=== PATIENT | male | born 1930 | race Caucasian/White ===

== ENCOUNTER 2017-10-04 15:11 | Inpatient (IN) ==
[2017-10-04] MEDS ORDERED: SODIUM CHLORIDE 0.9% 1,000 ML IV STA (17:50)
[2017-10-04 18:02] LABS: Basophils % 0.2 % (0.0-0.8); Hematocrit 34.9 VOL% (42.0-52.0); Hemoglobin 11.8 GM/DL (14.0-18.0); Immature Granulocytes % 0.4 %; Immature Granulocytes Absolute 0.04 #; Lymphocytes # 0.3 10*3/uL (1.4-4.0); Mean Corpuscular HGB Conc 33.8 GM/DL (32-36); Mean Corpuscular Hemoglobin 30 PG (27-34); Mean Corpuscular Volume 89.9 FL (87-102); Mean Platelet Volume 10.8 FL (9.6-12.0); Monocytes # 0.9 10*3/uL (0.11-0.8); Monocytes % 9.1 % (1.7-12.7); Neutrophils # 9.1 10*3/uL (1.4-7.4); Neutrophils % 87.3 % (38.7-73.9); Platelet Count 122 T/CUMM (130-400); Red Blood Count 3.88 MC/CUMM (3.8-5.5); White Blood Count 10.4 T/CUMM (4-12)
[2017-10-04 18:31] LABS: Albumin 3.1 G/DL (3.4-5.0); CKMB % 1.4 %; Calcium 8.7 MG/DL (8.5-10.1); Potassium 4.4 MMOL/L (3.5-5.1); Total Protein 7.1 G/DL (6.4-8.3); Troponin I Only 0.137 NG/ML (0.00-0.045)
[2017-10-04] MEDS ORDERED: ONDANSETRON 4 MG/2 ML VIAL IV STA (18:43)
[2017-10-04] MEDS ORDERED: MAGNESIUM SULF RIDER 2 GM in PREMIX 1 EACH IV PRN (19:29)
[2017-10-04] MEDS ORDERED: POTASSIUM CHLORIDE 20 MEQ TABLET PO PRN (19:29)
[2017-10-04] MEDS ORDERED: ONDANSETRON 4 MG/2 ML VIAL IV PRN (19:29)
[2017-10-04] MEDS ORDERED: ENOXAPARIN 100 MG/ML SYRINGE SUBCUT SCH (19:30)
[2017-10-04] MEDS ORDERED: FUROSEMIDE 40 MG TABLET PO SCH (20:00)
[2017-10-04 21:32] LABS: Band Neutrophils 2 % (0-10); Lymphocytes 3 % (20-55); Platelet Estimate Normal; Segmented Neutrophils 93 % (50-85); Total Cells Counted 100
[2017-10-05] MEDS: LISINOPRIL 20 MG TABLET PO SCH ×3 (00:10→21:07)
[2017-10-05] MEDS: rOPINIRole 1 MG TABLET PO SCH ×2 (00:10→21:07)
[2017-10-05] MEDS: ATORVASTATIN 20 MG TABLET PO SCH ×2 (00:10→21:07)
[2017-10-05 01:27] LABS: Osmolality,Calculated 286.5 MOS/KG (273-304); Potassium 4.2 MMOL/L (3.5-5.1); Risk Ratio 2.84; VLDL CHOLESTEROL 18.6 MG/DL
[2017-10-05 02:50] LABS: Apearance,Urine CLOUDY (Clear); Bacteria,Urine Many /HPF (Few); Bilirubin,Urine Negative (Negative); Blood, Urine Moderate mg/dL (Negative); Glucose,Urine (UA) Negative (Negative); Ketones,Urine Negative (Negative); Mucus,Urine Occasional /LPF (Occasional); Nitrite,Urine Negative (Negative); Protein,Urine 30 MG/DL; RBC,Urine 9 /HPF (0-4); Renal Epithelial Cells,Urine Occasional /HPF (<1); Squamous Epithelial Cell,Urine Occasional /HPF (0-10); Urine Color Yellow (Yellow); Urine Specific Gravity 1.012 (1.001-1.035); Urine Urobilinogen < 2.0 EU/DL (0.2-1.0); WBC,Urine 189 /HPF (0-6)
[2017-10-05] MEDS: NITROGLYCERIN 2% OINT 1 INCH/GM PACK TOP SCH ×4 (03:26→18:29)
[2017-10-05] MEDS: PANTOPRAZOLE 40 MG TABLET PO SCH (09:07)
[2017-10-05] MEDS: CLOPIDOGREL 75 MG TABLET PO SCH (09:10)
[2017-10-05] MEDS: POTASSIUM CHLORIDE 10 MEQ TABLET PO SCH (09:10)
[2017-10-05] MEDS: METOPROLOL SUCCINATE XL 50 MG TABLET PO SCH (09:10)
[2017-10-05] MEDS: LEVOTHYROXINE 50 MCG TABLET PO SCH (09:11)
[2017-10-05] MEDS: RANOLAZINE 500 MG TABLET PO SCH (09:11)
[2017-10-05] MEDS: ACETAMINOPHEN 325 MG TABLET PO PRN (09:11)
[2017-10-05] MEDS: CIPROFLOXACIN INJ 400 MG in PREMIX 1 EACH IV SCH ×3 (09:16→23:33)
[2017-10-05] MEDS: FINASTERIDE 5 MG TABLET PO SCH (09:16)
[2017-10-05] MEDS ORDERED: hydrALAZINE 20 MG/1 ML VIAL IV PRN (09:39)
[2017-10-05 15:07] LABS: Troponin I Only 0.055 NG/ML (0.00-0.045)
[2017-10-05] MEDS: TAMSULOSIN 0.4 MG CAPSULE PO SCH (18:28)
[2017-10-05] MEDS: ASPIRIN EC 81 MG TABLET PO SCH (18:29)
[2017-10-05] MEDS: ENOXAPARIN 30 MG/0.3 ML SYRINGE SUBCUT SCH (21:07)
[2017-10-05] MEDS: ZINC OXIDE PASTE 113 GM TUBE TOP SCH (21:08)
[2017-10-06] MEDS: NITROGLYCERIN 2% OINT 1 INCH/GM PACK TOP SCH ×3 (01:22→12:26)
[2017-10-06] MEDS: LEVOTHYROXINE 50 MCG TABLET PO SCH ×2 (05:25→11:44)
[2017-10-06 08:34] LABS: Basophils % 0.2 % (0.0-0.8); Eosinophils % 0.6 % (0.00-10.9); Hematocrit 33.6 VOL% (42.0-52.0); Hemoglobin 11.4 GM/DL (14.0-18.0); Immature Granulocytes % 0.5 %; Immature Granulocytes Absolute 0.03 #; Lymphocytes # 0.4 10*3/uL (1.4-4.0); Lymphocytes % 6.2 % (21.2-54.2); Mean Corpuscular HGB Conc 33.9 GM/DL (32-36); Mean Corpuscular Hemoglobin 30 PG (27-34); Mean Platelet Volume 11.3 FL (9.6-12.0); Monocytes # 0.9 10*3/uL (0.11-0.8); Monocytes % 14.2 % (1.7-12.7); Neutrophils # 4.9 10*3/uL (1.4-7.4); Neutrophils % 78.3 % (38.7-73.9); Platelet Count 119 T/CUMM (130-400); Red Blood Count 3.82 MC/CUMM (3.8-5.5); Red Cell Distribution Width 14.6 % (9.3-17.3); White Blood Count 6.3 T/CUMM (4-12)
[2017-10-06] MEDS ORDERED: FUROSEMIDE 20 MG TABLET PO SCH (09:00)
[2017-10-06 09:02] LABS: Calcium 7.9 MG/DL (8.5-10.1); Magnesium 1.8 MG/DL (1.8-2.4); Osmolality,Calculated 279.8 MOS/KG (273-304); Potassium 3.8 MMOL/L (3.5-5.1)
[2017-10-06] MEDS ORDERED: REGADENOSON 0.4 MG/5 ML SYRINGE IV ONE (09:54)
[2017-10-06] MEDS: ZINC OXIDE PASTE 113 GM TUBE TOP SCH ×2 (11:42→21:09)
[2017-10-06] MEDS: METOPROLOL SUCCINATE XL 50 MG TABLET PO SCH (11:44)
[2017-10-06] MEDS: ASPIRIN EC 81 MG TABLET PO SCH (11:44)
[2017-10-06] MEDS: PANTOPRAZOLE 40 MG TABLET PO SCH (11:44)
[2017-10-06] MEDS: RANOLAZINE 500 MG TABLET PO SCH ×2 (11:44→21:09)
[2017-10-06] MEDS: CLOPIDOGREL 75 MG TABLET PO SCH (11:45)
[2017-10-06] MEDS: POTASSIUM CHLORIDE 10 MEQ TABLET PO SCH (11:45)
[2017-10-06] MEDS: FINASTERIDE 5 MG TABLET PO SCH (11:45)
[2017-10-06] MEDS: FUROSEMIDE 40 MG/4 ML VIAL IV SCH (11:45)
[2017-10-06] MEDS: LISINOPRIL 20 MG TABLET PO SCH ×2 (11:45→21:10)
[2017-10-06] MEDS: CIPROFLOXACIN INJ 400 MG in PREMIX 1 EACH IV SCH ×2 (11:48→21:09)
[2017-10-06] MEDS: ISOSORBIDE MONONITRATE 60 MG TABLET PO SCH (14:57)
[2017-10-06] MEDS: TAMSULOSIN 0.4 MG CAPSULE PO SCH (18:12)
[2017-10-06] MEDS: ATORVASTATIN 20 MG TABLET PO SCH (21:09)
[2017-10-06] MEDS: ACETAMINOPHEN 325 MG TABLET PO PRN (21:09)
[2017-10-06] MEDS: rOPINIRole 1 MG TABLET PO SCH (21:09)
[2017-10-06] MEDS: CARVEDILOL 3.125 MG TABLET PO SCH (21:09)
[2017-10-06] MEDS: ENOXAPARIN 30 MG/0.3 ML SYRINGE SUBCUT SCH (21:09)
[2017-10-07 05:15] LABS: Basophils % 0.3 % (0.0-0.8); Eosinophils # 0.1 10*3/uL (0.0-0.87); Eosinophils % 1.1 % (0.00-10.9); Hemoglobin 10.8 GM/DL (14.0-18.0); Immature Granulocytes % 1.4 %; Immature Granulocytes Absolute 0.09 #; Lymphocytes # 0.7 10*3/uL (1.4-4.0); Lymphocytes % 10.8 % (21.2-54.2); Mean Corpuscular HGB Conc 33.8 GM/DL (32-36); Mean Corpuscular Hemoglobin 29 PG (27-34); Mean Corpuscular Volume 86.7 FL (87-102); Mean Platelet Volume 11.4 FL (9.6-12.0); Neutrophils # 4.7 10*3/uL (1.4-7.4); Neutrophils % 71.4 % (38.7-73.9); Platelet Count 131 T/CUMM (130-400); Red Blood Count 3.69 MC/CUMM (3.8-5.5); Red Cell Distribution Width 14.4 % (9.3-17.3); White Blood Count 6.6 T/CUMM (4-12)
[2017-10-07 05:49] LABS: Calcium 7.8 MG/DL (8.5-10.1); Magnesium 1.7 MG/DL (1.8-2.4); Osmolality,Calculated 276.1 MOS/KG (273-304); Potassium 3.6 MMOL/L (3.5-5.1)
[2017-10-07] MEDS: LEVOTHYROXINE 50 MCG TABLET PO SCH (06:12)
[2017-10-07] MEDS ORDERED: NON-FORMULARY MEDICATION (Mirabegron [Myrbetriq] 50 MG) PO SCH (09:00)
[2017-10-07] MEDS: FUROSEMIDE 40 MG/4 ML VIAL IV SCH (09:26)
[2017-10-07] MEDS: CLOPIDOGREL 75 MG TABLET PO SCH (09:27)
[2017-10-07] MEDS: RANOLAZINE 500 MG TABLET PO SCH ×2 (09:28→09:29)
[2017-10-07] MEDS: TAMSULOSIN 0.4 MG CAPSULE PO SCH (09:28)
[2017-10-07] MEDS: LISINOPRIL 20 MG TABLET PO SCH (09:28)
[2017-10-07] MEDS: ISOSORBIDE MONONITRATE 60 MG TABLET PO SCH (09:30)
[2017-10-07] MEDS: ASPIRIN EC 81 MG TABLET PO SCH (09:30)
[2017-10-07] MEDS: PANTOPRAZOLE 40 MG TABLET PO SCH (09:30)
[2017-10-07] MEDS: FINASTERIDE 5 MG TABLET PO SCH (09:32)
[2017-10-07] MEDS: CARVEDILOL 3.125 MG TABLET PO SCH (09:32)
[2017-10-07] MEDS: POTASSIUM CHLORIDE 10 MEQ TABLET PO SCH (09:34)
[2017-10-07 11:53] VITALS: BP 124/70
[2017-10-07] MEDS: ZINC OXIDE PASTE 113 GM TUBE TOP SCH (11:59)
[2017-10-07] MEDS: CIPROFLOXACIN INJ 400 MG in PREMIX 1 EACH IV SCH (14:03)
[2017-10-07] MEDS ORDERED: CIPROFLOXACIN 250 MG TABLET PO SCH ×2 (15:30→21:00)
== END 2017-10-07 16:20 | disposition swing bed (61) | DRG 291 ==
LOC: EDBD → N.ED 15:11 → N.EDINP 18:46 → N.TELEN 23:49
PROVIDERS: ADMIT Internal Medicine; ATTEND Internal Medicine